=== PATIENT | female | born 1960 | race Two or more races ===

== ENCOUNTER 2016-11-24 15:14 | Emergency (ER) | payer MEDICAID ==
[2016-11-24] MEDS ORDERED: Albuterol/Ipratropium 3.0-0.5 MG/3 ML Neb Soln NEB ONE ×2 (16:00→17:37)
[2016-11-24] MEDS ORDERED: Aspirin 81 MG Tab.Chew PO ONE (16:00)
[2016-11-24] MEDS ORDERED: Sodium Chloride 0.9% 10 ML Syringe FLUSH PRN (16:00)
--- NOTE | 2016-11-24 16:40 | CR ---
Chest: Portable view of the chest was obtained. Comparison: Previous chest x-ray 08/25/16. Heart size is normal. Mild tortuosity of the thoracic aorta is seen. Lungs are clear. Bony structures are grossly intact. Impression: 1. Nothing acute is identified on portable chest x-ray. Diagnostic code #2
[2016-11-24] MEDS ORDERED: methylPREDNISolone Sodium Succinate 125 MG/2 ML SDV IVPUSH ONE (17:37)
--- NOTE | 2016-11-24 18:02 | EDM.PDOC ---
ED HPI GENERAL MEDICAL PROBLEM - General Chief Complaint: Chest Pain Stated Complaint: HIGH BP SENT FROM [facility] Time Seen by Provider: 11/24/16 15:53 Source of Information: Reports: Patient History Limitations: Reports: No Limitations - History of Present Illness INITIAL COMMENTS - FREE TEXT/NARRATIVE: The patient presents with chest pain. She was at cardiac rehab today. She has a history of an ND with stents. She had chest pain there and she was given a nitro and it was better. She had more pain and she went to [place] and they sent her over here for evaluation. She has a mild cough but no fever or chills. She says the pain is a heaviness. She denies being short of breath. She has no edema or pain in her legs. She has no abdominal pain, nausea or vomiting. Onset: Gradual Duration: Hour(s): (Today) Location: Reports: Chest Quality: Reports: Other (Heaviness) Severity: Moderate Improves with: Reports: None Worsens with: Reports: None Associated Symptoms: Reports: Chest Pain, Nausea/Vomiting. Denies: cough w sputum, Fever/Chills, Shortness of Breath Left Chest Pain Score (Numeric/FACES): 7 - Related Data Allergies Allergy/AdvReac Type Severity Reaction Status Date / Time No Known Allergies Allergy Verified 11/24/16 15:34 Home Meds: Home Meds Aspirin 81 mg PO DAILY 08/20/16 [History] Citalopram [Celexa] 40 mg PO DAILY 08/20/16 [History] Insulin Aspart [Novolog Flexpen] 18 unit SQ TID 08/20/16 [History] Insulin Glarg,Human.Rec.Analog [Lantus] 50 unit SQ BEDTIME 08/20/16 [History] Isosorbide Mononitrate [Imdur] 30 mg PO BID 08/20/16 [History] Lisinopril 40 mg PO DAILY 08/20/16 [History] Metoprolol Tartrate 75 mg PO BID 08/20/16 [History] Nitroglycerin [Nitrostat] 0.4 mg SL Q5M PRN 08/20/16 [History] Pregabalin [Lyrica] 50 mg PO TID 08/20/16 [History] Ranitidine [Zantac] 150 mg PO BEDTIME 08/20/16 [History] amLODIPine [Norvasc] 5 mg PO DAILY 08/20/16 [History] atorvaSTATin [Lipitor] 40 mg PO DAILY 08/20/16 [History] metFORMIN HCl [Metformin HCl] 1,000 mg PO BID 08/20/16 [History] tiZANidine [Zanaflex] 4 mg PO Q8H PRN 08/20/16 [History] Albuterol [Proventil HFA] 6.7 gm INH DAILY PRN 08/25/16 [History] Docusate Sodium [Colace] 100 mg PO DAILY 08/25/16 [History] Prasugrel HCl [Effient] 10 mg PO DAILY 08/25/16 [History] Insulin Aspart [NovoLOG] 4 - 15 unit SUBCUT ACBED 09/15/16 [History] Prednisone [IJD: predniSONE] 40 mg PO WITHBREAKFAST #10 tab 11/24/16 [Rx] Past Medical History HEENT History: Reports: Glaucoma Cardiovascular History: Reports: High Cholesterol, Hypertension, ND, Stents Other Cardiovascular History: stents place on 08/21/16 Respiratory History: Reports: Asthma, COPD Gastrointestinal History: Reports: Chronic Constipation YOUTUBER History: Reports: Other OB/BYN History: tubal ligation Musculoskeletal History: Reports: Back Pain, Chronic, Other (See Below) Other Musculoskeletal History: back surgery in 2014 Neurological History: Reports: Neuropathy, Diabetic Psychiatric History: Reports: Addiction, Depression Endocrine/Metabolic History: Reports: Diabetes, Type II Hematologic History: Reports: Anemia - Infectious Disease History Infectious Disease History: Reports: C-Difficile - Past Surgical History HEENT Surgical History: Reports: None Cardiovascular Surgical History: Reports: Carotid Stents GI Surgical History: Reports: Appendectomy Neurological Surgical History: Reports: Spinal Fusion Social & Family History - Family History HEENT: Reports: Glaucoma Cardiac: Reports: Afib, Bypass, CAD Respiratory: Reports: Asthma, COPD GI: Reports: Bowel Obstruction : Reports: Dialysis, Renal Calculus Musculoskeletal: Reports: Arthritis Neurological: Reports: CVA, Neuropathy, Diabetic Psychiatric: Reports: Anxiety, Depression, Panic Attack Endocrine/Metabolic: Reports: Diabetes, type II, Hyperthyroidism, Obesity/MBI 30 + Hematologic: Reports: Anemia Oncologic: Reports: Uterine - Tobacco Use Smoking Status *Q: Current Every Day Smoker Years of Tobacco use: 13 Packs/Tins Daily: 1.5 Used Tobacco, but Quit: No Second Hand Smoke Exposure: No - Caffeine Use Caffeine Use: Reports: Coffee - Recreational Drug Use Recreational Drug Use: No - Living Situation & Occupation Living situation: Reports: with Family Occupation: Unemployed ED ROS GENERAL - Review of Systems Review Of Systems: See Below Constitutional: Reports: No Symptoms HEENT: Reports: No Symptoms Respiratory: Reports: No Symptoms Cardiovascular: Reports: Chest Pain Endocrine: Reports: No Symptoms GI/Abdominal: Reports: No Symptoms : Reports: No Symptoms Musculoskeletal: Reports: No Symptoms Skin: Reports: No Symptoms Neurological: Reports: No Symptoms ED EXAM, GENERAL - Physical Exam Exam: See Below Exam Limited By: No Limitations General Appearance: Alert, No Apparent Distress Ears: Normal External Exam Nose: Normal Inspection Head: Atraumatic, Normocephalic Neck: Normal Inspection Respiratory/Chest: No Respiratory Distress, Wheezing (Moderate) Cardiovascular: Regular Rate, Rhythm, No Edema, No Murmur GI/Abdominal: Soft, Non-Tender, No Organomegaly, No Mass Back Exam: Normal Inspection Extremities: Normal Inspection Neurological: Alert, Oriented, No Motor/Sensory Deficits EKG INTERPRETATION EKG Date: 11/24/16 Time: 15:59 Rhythm: NSR Rate (beats/min): 82 Dewitt: normal P-wave: present QRS: normal ST-T: normal QT: normal Course - Vital Signs Last Recorded V/S: Last Vital Signs Temp 98 F 11/24/16 15:30 Pulse 88 11/24/16 15:30 Resp 20 11/24/16 15:30 BP 161/90 H 11/24/16 15:30 Pulse Ox 97 11/24/16 17:37 - Orders/Labs/Meds Orders: Active Orders 24 hr Category Date Time Status Cardiac Monitoring [RC] . DIRECTED Care 11/24/16 16:00 Active EKG Documentation Completion [RC] STAT Care 11/24/16 16:00 Active Oxygen Therapy [RC] PRN Care 11/24/16 16:00 Active Peripheral IV Care [RC] . DIRECTED Care 11/24/16 16:00 Active RT Aerosol Therapy [RC] ASDIRECTED Care 11/24/16 16:00 Active RT Aerosol Therapy [RC] ASDIRECTED Care 11/24/16 17:37 Active Sodium Chloride 0.9% [Saline Flush] Med 11/24/16 16:00 Active 10 ml FLUSH ASDIRECTED PRN Peripheral IV Insertion Adult [OM.PC] Stat Oth 11/24/16 16:00 Ordered Medication Orders Sodium Chloride (Saline Flush) 10 ml FLUSH ASDIRECTED PRN PRN Reason: Keep Vein Open Last Admin: 11/24/16 16:00 Dose: 10 ml Labs: Laboratory Tests 11/24/16 11/24/16 11/24/16 Range/Units 16:00 16:00 18:00 WBC 6.75 (3.98-10.04) K/mm3 RBC 4.46 (3.98-5.22) M/mm3 Hgb 13.5 (11.2-15.7) gm/L Hct 40.5 (34.1-44.9) % MCV 90.8 (79.4-94.8) fl MCH 30.3 (25.6-32.2) pg MCHC 33.3 (32.2-35.5) g/dl RDW Std Deviation 42.9 (36.4-46.3) fL Plt Count 130 L (182-369) K/mm3 MPV 13.2 H (9.4-12.3) fl Neut % (Auto) 65.0 (34.0-71.1) % Lymph % (Auto) 22.8 (19.3-51.7) % [place] % (Auto) 7.9 (4.7-12.5) % Eos % (Auto) 3.6 (0.7-5.8) Baso % (Auto) 0.6 (0.1-1.2) % Neut # (Auto) 4.39 (1.56-6.13) K/mm3 Lymph # (Auto) 1.54 (1.18-3.74) K/mm3 [place] # (Auto) 0.53 H (0.24-0.36) K/mm3 Eos # (Auto) 0.24 (0.04-0.36) K/mm3 Baso # (Auto) 0.04 (0.01-0.08) K/mm3 Sodium 140 (136-145) mEq/L Potassium 3.7 (3.5-5.1) mEq/L Chloride 104 (98-107) mEq/L Carbon Dioxide 23 (21-32) mEq/L Anion Gap 16.7 H (5-15) BUN 14 (7-18) mg/dL Creatinine 1.1 H (0.55-1.02) mg/dL Est Cr Clr Drug Dosing 47.24 mL/min Estimated GFR (MDRD) 51 (>60) mL/min BUN/Creatinine Ratio 12.7 L (14-18) Glucose 160 H (74-106) mg/dL Calcium 9.1 (8.5-10.1) mg/dL Total Bilirubin 0.3 (0.2-1.0) mg/dL AST 94 H (15-37) U/L ALT 113 H (14-59) U/L Alkaline Phosphatase 137 H (46-116) U/L Troponin I < 0.017 < 0.017 (0.00-0.056) ng/mL Total Protein 6.9 (6.4-8.2) g/dl Albumin 3.6 (3.4-5.0) g/dl Globulin 3.3 gm/dL Albumin/Globulin Ratio 1.1 (1-2) Meds: Medications Generic Name Dose Route Start Last Admin Trade Name Freq PRN Reason Stop Dose Admin Sodium Chloride 10 ml 11/24/16 16:00 11/24/16 16:00 Saline Flush FLUSH 10 ml ASDIRECTED PRN Administration Keep Vein Open Discontinued Medications Generic Name Dose Route Start Last Admin Trade Name Freq PRN Reason Stop Dose Admin Albuterol/Ipratropium 3 ml 11/24/16 16:00 11/24/16 16:07 Duoneb 3.0-0.5 Mg/3 Ml NEB 11/24/16 16:01 3 ml ONETIME ONE Administration Albuterol/Ipratropium 3 ml 11/24/16 17:37 11/24/16 17:44 Duoneb 3.0-0.5 Mg/3 Ml NEB 11/24/16 17:38 3 ml ONETIME ONE Administration Aspirin 324 mg 11/24/16 16:00 11/24/16 16:37 Aspirin PO 11/24/16 16:01 324 mg ONETIME ONE Administration Methylprednisolone Sodium Succinate 125 mg 11/24/16 17:37 11/24/16 17:57 Solu-Medrol IVPUSH 11/24/16 17:38 125 mg ONETIME ONE Administration - Re-Assessments/Exams Free Text/Narrative Re-Assessment/Exam: 11/24/16 18:10 I ordered an IV saline lock, aspirin, EKG, CXR, duoneb. Her EKG shows a NSR with no acute changes. Her CXR looks good. Her CBC and CMP look good. Her troponin is negative. She still has some wheezing. I ordered a duoneb and solu -medrol 125mg IV. I will do a repeat troponin. 11/24/16 18:39 Her repeat troponin was negative. She feels better. It appears to be an asthma exacerbation. I will discharge her on some prednisone 40mg daily for 5 days. Departure - Departure Time of Disposition: 18:40 Disposition: Home, Self-Care 01 Condition: good Clinical Impression: Asthma exacerbation Chest pain Qualifiers: Chest pain type: unspecified Qualified Code(s): R07.9 - Chest pain, unspecified Prescriptions: Prednisone [IJD: predniSONE] 40 mg PO WITHBREAKFAST #10 tab Forms: ED Department Discharge Additional Instructions: Take your medication as prescribed. Take prednisone 2 pills daily for 5 days. Please return if you are worse such as more chest pain or shortness of breath. - My Orders Last 24 Hours: My Active Orders 11/24/16 16:00 Cardiac Monitoring [RC] . DIRECTED EKG Documentation Completion [RC] STAT Oxygen Therapy [RC] PRN Peripheral IV Care [RC] . DIRECTED RT Aerosol Therapy [RC] ASDIRECTED Sodium Chloride 0.9% [Saline Flush] 10 ml FLUSH ASDIRECTED PRN Peripheral IV Insertion Adult [OM.PC] Stat 11/24/16 17:37 RT Aerosol Therapy [RC] ASDIRECTED - Assessment/Plan Last 24 Hours: My Active Orders 11/24/16 16:00 Cardiac Monitoring [RC] . DIRECTED EKG Documentation Completion [RC] STAT Oxygen Therapy [RC] PRN Peripheral IV Care [RC] . DIRECTED RT Aerosol Therapy [RC] ASDIRECTED Sodium Chloride 0.9% [Saline Flush] 10 ml FLUSH ASDIRECTED PRN Peripheral IV Insertion Adult [OM.PC] Stat 11/24/16 17:37 RT Aerosol Therapy [RC] ASDIRECTED
[2016-11-24 19:20] VITALS: BP 158/82
== END 2016-11-24 19:15 | disposition home or self-care (01) ==
LOC: JD.ED 15:14
DX: J45.901 Unspecified asthma with (acute) exacerbation (principal); R07.9 Chest pain, unspecified; E78.00 Pure hypercholesterolemia, unspecified; I10 Essential (primary) hypertension; J44.9 Chronic obstructive pulmonary disease, unspecified; E11.9 Type 2 diabetes mellitus without complications; F17.210 Nicotine dependence, cigarettes, uncomplicated; Z79.82 Long term (current) use of aspirin; Z79.4 Long term (current) use of insulin; Z79.899 Other long term (current) drug therapy
CPT/HCPCS: 36415; 71010; 80053; 84484; 85025; 93005; 94640; 94664; 96374; 99285; A9270; J2930; J7050; 99284

== ENCOUNTER 2017-04-09 08:59 | Emergency (ER) | payer MEDICAID ==
[2017-04-09 09:16] VITALS: BP 159/96
--- NOTE | 2017-04-09 09:51 | EDM.PDOC ---
ED HPI GENERAL MEDICAL PROBLEM - General Chief Complaint: Back Pain or Injury Stated Complaint: BACK AND LT LEG PAIN Time Seen by Provider: 04/09/17 09:24 Source of Information: Reports: Patient History Limitations: Reports: No Limitations - History of Present Illness INITIAL COMMENTS - FREE TEXT/NARRATIVE: The patient presents with low back pain. This has been going on for about 2 years but it has gotten worse. The patient had back surgery 2 years ago and she fell 4 days after that and hurt her back again. Since then she has had back pain to the left side, left leg numbness and weakness, and bowel and bladder problems. All of these symptoms have gotten worse. Her provider Dr Dinero had her going to PT and now they have gotten worse. Her provider recommended she come to the ER for an MRI. The patient says she has numbness in the groin and has decreased sensation with intercourse. This is not a new problem. She denies fever, chills, cough, chest pain, or shortness of breath. She also said she has numbness to the left arm. This is a chronic problem and she has known carpal tunnel syndrome. She has neck pain. She fell a few weeks ago and hurt her neck. She got dizzy and fell at that time. Onset: Gradual Duration: Week(s): (For 2 years) Location: Reports: Back Quality: Reports: Sharp Severity: Severe Improves with: Reports: None Worsens with: Reports: Movement Context: Reports: Activity Associated Symptoms: Reports: No Other Symptoms Treatments [employer] WORKER: Reports: Acetaminophen Left Lower Back Pain Score (Numeric/FACES): 6 - Related Data Allergies Allergy/AdvReac Type Severity Reaction Status Date / Time No Known Allergies Allergy Verified 04/09/17 09:16 Home Meds: Home Meds Aspirin 81 mg PO DAILY 08/20/16 [History] Citalopram [Celexa] 40 mg PO DAILY 08/20/16 [History] Insulin Aspart [Novolog Flexpen] 18 unit SQ TID 08/20/16 [History] Insulin Glarg,Human.Rec.Analog [Lantus] 50 unit SQ BEDTIME 08/20/16 [History] Isosorbide Mononitrate [Imdur] 30 mg PO BID 08/20/16 [History] Lisinopril 40 mg PO DAILY 08/20/16 [History] Metoprolol Tartrate 75 mg PO BID 08/20/16 [History] Nitroglycerin [Nitrostat] 0.4 mg SL Q5M PRN 08/20/16 [History] Pregabalin [Lyrica] 50 mg PO TID 08/20/16 [History] Ranitidine [Zantac] 150 mg PO BEDTIME 08/20/16 [History] amLODIPine [Norvasc] 5 mg PO DAILY 08/20/16 [History] atorvaSTATin [Lipitor] 40 mg PO DAILY 08/20/16 [History] metFORMIN HCl [Metformin HCl] 1,000 mg PO BID 08/20/16 [History] tiZANidine [Zanaflex] 4 mg PO Q8H PRN 08/20/16 [History] Albuterol [Proventil HFA] 6.7 gm INH DAILY PRN 08/25/16 [History] Docusate Sodium [Colace] 100 mg PO DAILY 08/25/16 [History] Prasugrel HCl [Effient] 10 mg PO DAILY 08/25/16 [History] Insulin Aspart [NovoLOG] 4 - 15 unit SUBCUT ACBED 09/15/16 [History] Prednisone [IJD: predniSONE] 40 mg PO WITHBREAKFAST #10 tab 11/24/16 [Rx] Hydrocodone/Acetaminophen [Hydrocodon-Acetaminophen 5-325] 1 - 2 each PO Q6HR PRN #20 tablet 04/09/17 [Rx] Past Medical History HEENT History: Reports: Glaucoma Cardiovascular History: Reports: High Cholesterol, Hypertension, [place], Stents Other Cardiovascular History: stents place on 08/21/16 Respiratory History: Reports: Asthma, COPD Gastrointestinal History: Reports: Chronic Constipation, Fecal Incontinence Genitourinary History: Reports: Urinary Incontinence [employer] 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: Reports: Other OB/BYN History: tubal ligation Musculoskeletal History: Reports: Back Pain, Chronic, Other (See Below) Other Musculoskeletal History: back surgery in 2014 Neurological History: Reports: Neuropathy, Diabetic Psychiatric History: Reports: Addiction, Depression Endocrine/Metabolic History: Reports: Diabetes, Type II Hematologic History: Reports: Anemia, Blood Transfusion(s) - Infectious Disease History Infectious Disease History: Reports: C-Difficile - Past Surgical History HEENT Surgical History: Reports: None Cardiovascular Surgical History: Reports: Carotid Stents GI Surgical History: Reports: Appendectomy Neurological Surgical History: Reports: Spinal Fusion Social & Family History - Family History Family Medical History: Noncontributory HEENT: Reports: Glaucoma Cardiac: Reports: Afib, Bypass, CAD Respiratory: Reports: Asthma, COPD GI: Reports: Bowel Obstruction : Reports: Dialysis, Renal Calculus Musculoskeletal: Reports: Arthritis Neurological: Reports: CVA, Neuropathy, Diabetic Psychiatric: Reports: Anxiety, Depression, Panic Attack Endocrine/Metabolic: Reports: Diabetes, type II, Hyperthyroidism, Obesity/MBI 30 + Hematologic: Reports: Anemia Oncologic: Reports: Uterine - Tobacco Use Smoking Status *Q: Current Every Day Smoker Years of Tobacco use: 30 Packs/Tins Daily: 1 Used Tobacco, but Quit: No Second Hand Smoke Exposure: No - Caffeine Use Caffeine Use: Reports: None - Recreational Drug Use Recreational Drug Use: No - Living Situation & Occupation Living situation: Reports: with Family Occupation: Unemployed ED ROS GENERAL - Review of Systems Review Of Systems: See Below Constitutional: Reports: No Symptoms HEENT: Reports: No Symptoms Respiratory: Reports: No Symptoms Cardiovascular: Reports: No Symptoms Endocrine: Reports: No Symptoms GI/Abdominal: Reports: No Symptoms : Reports: No Symptoms Musculoskeletal: Reports: Neck Pain, Back Pain (Lower) Neurological: Reports: Numbness (Left arm and leg), Weakness (Left leg). Denies : Headache ED EXAM,LOWER BACK PAIN/INJURY - Physical Exam Exam: See Below Exam Limited By: No Limitations General Appearance: Alert, No Apparent Distress Ears: Normal External Exam Nose: Normal Inspection Head: Atraumatic, Normocephalic Neck: Other (Pain upon palpation to the left lateral neck but not the midline.) Respiratory/Chest: No Respiratory Distress, Lungs Clear, Normal Breath Sounds Cardiovascular: Regular Rate, Rhythm, No Edema, No Murmur GI/Abdominal: Soft, Non-Tender, No Organomegaly, No Mass Back Exam: Other (Pain upon palpation to the left lower back) Extremities: Normal Range of Motion, Non-Tender Neurological: Alert, Oriented x 3, Other (Mild weakness to the left arm and left leg. Decreased sensation to the left leg and left arm.) Course - Vital Signs Last Recorded V/S: Last Vital Signs Temp 97.6 F 04/09/17 09:09 Pulse 71 04/09/17 09:09 Resp 16 04/09/17 09:09 BP 159/96 H 04/09/17 09:09 Pulse Ox 98 04/09/17 09:09 - Re-Assessments/Exams Free Text/Narrative Re-Assessment/Exam: 04/09/17 09:56 The numbness, pain and weakness of the left arm and leg are chronic problems that are getting worse. I do not feel there is an acute CVA. She does need an MRI of her lumbar spine and cervical spine. I checked with our radiology department and they could not get her in this week. They do have an opening Thursday at 1:30. I have scheduled her for that. My recording clerk did attempt to get her a neurology appointment but they would not book her until she had the MRI. Departure - Departure Time of Disposition: 10:00 Disposition: Home, Self-Care 01 Condition: Good Clinical Impression: Neck pain, Left arm numbness, Left leg numbness Low back pain Qualifiers: Chronicity: chronic Back pain laterality: left Sciatica presence: with sciatica Sciatica laterality: sciatica of left side Qualified Code(s): M54.42 - Lumbago with sciatica, left side; G89.29 - Other chronic pain - Discharge Information Prescriptions: Hydrocodone/Acetaminophen [Hydrocodon-Acetaminophen 5-325] 1 - 2 each PO Q6HR PRN #20 tablet PRN Reason: Pain Referrals: Izzy Mays DO [Primary Care Provider] - 1 Week (After the MRI) Forms: ED Department Discharge Additional Instructions: Take the hydrocodone as needed for pain. I have scheduled an MRI of your neck and low back for ThursdayApril 15 at 1:30am. Please come 1/2 hour early to register. Please return if the pain gets worse, if the weakness gets worse or if you cannot urinate. Follow up with Dr Mays a day or 2 after the MRI for results.
== END 2017-04-09 11:00 | disposition home or self-care (01) ==
LOC: JD.ED 08:59
DX: M54.42 Lumbago with sciatica, left side (principal); M54.2 Cervicalgia; R20.0 Anesthesia of skin; E11.9 Type 2 diabetes mellitus without complications; F32.9 Major depressive disorder, single episode, unspecified; F17.210 Nicotine dependence, cigarettes, uncomplicated; Z79.82 Long term (current) use of aspirin; Z79.4 Long term (current) use of insulin; Z79.899 Other long term (current) drug therapy; Z79.84 Long term (current) use of oral hypoglycemic drugs
CPT/HCPCS: 99284

== ENCOUNTER 2017-05-21 14:27 | Emergency (ER) | payer MEDICAID, OTHER ==
[2017-05-21] MEDS ORDERED: HYDROmorphone 1 MG/ML Syringe IVPUSH ONE (15:04)
[2017-05-21] MEDS: Sodium Chloride 0.9% 10 ML Syringe FLUSH PRN ×2 (15:14→16:32)
--- NOTE | 2017-05-21 15:31 | EDM.PDOC ---
ED HPI GENERAL MEDICAL PROBLEM - General Chief Complaint: Neck Problem Stated Complaint: NECK AND R SHOULDER PAIN Time Seen by Provider: 05/21/17 14:38 Source of Information: Reports: Patient History Limitations: Reports: No Limitations - History of Present Illness INITIAL COMMENTS - FREE TEXT/NARRATIVE: The patient present with right sided neck pain that radiates down her right arm. She started having some pain last night and this morning it was much worse. She said this summer she fell out of a chair at the [employer] and since then she has had pain in her neck and back. The pain has never been this bad. She denies numbness or weakness. She does have a headache with it but it started in the neck. She denies fever, chills, cough, chest pain or shortness of breath. She has no abdominal pain, nausea or vomiting. Onset: Gradual Duration: Day(s): (Last night) Location: Reports: Neck, Upper Extremity, Right Quality: Reports: Sharp Severity: Severe Improves with: Reports: Immobilization Worsens with: Reports: Movement Context: Reports: Other (She did fall this summer and she has had some trouble since then) Associated Symptoms: Reports: No Other Symptoms Right Neck Pain Score (Numeric/FACES): 8 - Related Data Allergies Allergy/AdvReac Type Severity Reaction Status Date / Time No Known Allergies Allergy Verified 05/21/17 14:38 Home Meds: Home Meds Aspirin 81 mg PO DAILY 08/20/16 [History] Citalopram [Celexa] 40 mg PO DAILY 08/20/16 [History] Insulin Glarg,Human.Rec.Analog [Lantus] 50 unit SQ BEDTIME 08/20/16 [History] Isosorbide Mononitrate [Imdur] 30 mg PO BID 08/20/16 [History] Lisinopril 40 mg PO DAILY 08/20/16 [History] Metoprolol Tartrate 100 mg PO BID 08/20/16 [History] Nitroglycerin [Nitrostat] 0.4 mg SL Q5M PRN 08/20/16 [History] Pregabalin [Lyrica] 50 mg PO TID 08/20/16 [History] amLODIPine [Norvasc] 5 mg PO DAILY 08/20/16 [History] atorvaSTATin [Lipitor] 10 mg PO DAILY 08/20/16 [History] metFORMIN HCl [Metformin HCl] 1,000 mg PO BID 08/20/16 [History] tiZANidine [Zanaflex] 4 mg PO Q8H PRN 08/20/16 [History] Prasugrel HCl [Effient] 10 mg PO DAILY 08/25/16 [History] Hydrocodone/Acetaminophen [Hydrocodon-Acetaminophn 10-325] 2 tab PO Q6H PRN [History] Pantoprazole [ProTONIX] 1 tab PO DAILY 04/09/17 [History] Diazepam [Valium] 5 mg PO TID PRN #20 tablet 05/21/17 [Rx] Docusate Sodium [Colace] 100 mg PO DAILY PRN 05/21/17 [History] Insulin Aspart [NovoLOG] 25 unit SUBCUT BIDAC 05/21/17 [History] Insulin Aspart [NovoLOG] 27 unit SUBCUT DAILY 05/21/17 [History] Loratadine [Claritin] 10 mg PO DAILY 05/21/17 [History] oxyCODONE HCl/Acetaminophen [Percocet 5-325 mg Tablet] 1 - 2 each PO Q6HR PRN # 20 tablet 05/21/17 [Rx] traMADol HCl [Tramadol HCl] 50 mg PO TID PRN 05/21/17 [History] Past Medical History HEENT History: Reports: Glaucoma Cardiovascular History: Reports: High Cholesterol, Hypertension, CT, Stents Other Cardiovascular History: stents place on 08/21/16 Respiratory History: Reports: Asthma, COPD Gastrointestinal History: Reports: Chronic Constipation, Fecal Incontinence Genitourinary History: Reports: Urinary Incontinence [employer] History: Reports: Other OB/BYN History: tubal ligation Musculoskeletal History: Reports: Back Pain, Chronic, Other (See Below) Other Musculoskeletal History: back surgery in 2014 Neurological History: Reports: Neuropathy, Diabetic Psychiatric History: Reports: Addiction, Depression Endocrine/Metabolic History: Reports: Diabetes, Type II Hematologic History: Reports: Anemia, Blood Transfusion(s) - Infectious Disease History Infectious Disease History: Reports: C-Difficile - Past Surgical History HEENT Surgical History: Reports: None Cardiovascular Surgical History: Reports: Carotid Stents GI Surgical History: Reports: Appendectomy Neurological Surgical History: Reports: Spinal Fusion Social & Family History - Family History Family Medical History: Noncontributory HEENT: Reports: Glaucoma Cardiac: Reports: Afib, Bypass, CAD Respiratory: Reports: Asthma, COPD GI: Reports: Bowel Obstruction : Reports: Dialysis, Renal Calculus Musculoskeletal: Reports: Arthritis Neurological: Reports: CVA, Neuropathy, Diabetic Psychiatric: Reports: Anxiety, Depression, Panic Attack Endocrine/Metabolic: Reports: Diabetes, type II, Hyperthyroidism, Obesity/MBI 30 + Hematologic: Reports: Anemia Oncologic: Reports: Uterine - Tobacco Use Smoking Status *Q: Current Every Day Smoker Years of Tobacco use: 35 Packs/Tins Daily: 1.5 Used Tobacco, but Quit: No Second Hand Smoke Exposure: No - Caffeine Use Caffeine Use: Reports: None - Recreational Drug Use Recreational Drug Use: No - Living Situation & Occupation Living situation: Reports: with Family Occupation: Unemployed ED ROS GENERAL - Review of Systems Review Of Systems: See Below Constitutional: Reports: No Symptoms HEENT: Reports: No Symptoms Respiratory: Reports: No Symptoms Cardiovascular: Reports: No Symptoms Endocrine: Reports: No Symptoms GI/Abdominal: Reports: No Symptoms : Reports: No Symptoms Musculoskeletal: Reports: Neck Pain, Shoulder Pain (and right arm pain) ED EXAM, UPPER BACK/NECK PAIN - Physical Exam Exam: See Below Exam Limited By: No Limitations General Appearance: Alert, No Apparent Distress Ears Exam: Normal External Exam Nose Exam: Normal Inspection Head Exam: Atraumatic, Normocephalic Neck Exam: Tenderness (Moderate tenderness to the right neck. The patient is holding her right arm next to her body and flexed at the elbow.) Cardiovascular/Respiratory: Regular Rate, Rhythm, No M/R/G, Normal Peripheral Pulses, Normal Breath Sounds, No Respiratory Distress GI/Abdominal: Soft, Non-Tender, No Organomegaly, No Mass Extremities: Other (Pain upon palpation to the upper right arm. Good sensation and pulses distally. Patient can move her fingers and bend at the wrist and elbow.) Course - Vital Signs Last Recorded V/S: Last Vital Signs Temp 98.7 F 05/21/17 14:38 Pulse 77 05/21/17 14:38 Resp 18 05/21/17 14:38 BP 162/97 H 05/21/17 14:38 Pulse Ox 97 05/21/17 14:38 - Orders/Labs/Meds Orders: Active Orders 24 hr Category Date Time Status Peripheral IV Care [RC] . DIRECTED Care 05/21/17 15:03 Active Sodium Chloride 0.9% [Saline Flush] Med 05/21/17 15:03 Active 10 ml FLUSH ASDIRECTED PRN Peripheral IV Insertion Adult [OM.PC] Routine Oth 05/21/17 15:03 Ordered Medication Orders Sodium Chloride (Saline Flush) 10 ml FLUSH ASDIRECTED PRN PRN Reason: Keep Vein Open Last Admin: 05/21/17 15:14 Dose: 10 ml Meds: Medications Generic Name Dose Route Start Last Admin Trade Name Freq PRN Reason Stop Dose Admin Sodium Chloride 10 ml 05/21/17 15:03 05/21/17 15:14 Saline Flush FLUSH 10 ml ASDIRECTED PRN Administration Keep Vein Open Discontinued Medications Generic Name Dose Route Start Last Admin Trade Name Freq PRN Reason Stop Dose Admin Diazepam 5 mg 05/21/17 15:03 05/21/17 15:13 Valium IVPUSH 05/21/17 15:04 5 mg ONETIME ONE Administration Hydromorphone HCl 1 mg 05/21/17 15:04 05/21/17 15:14 Dilaudid IVPUSH 05/21/17 15:05 1 mg ONETIME ONE Administration - Re-Assessments/Exams Free Text/Narrative Re-Assessment/Exam: 05/21/17 15:33 I ordered an IV saline lock, CT of her cervical spine, dilaudid 1mg IV, and valium 5mg IV. 05/21/17 16:[address] shows degenerative changes. Findings are fairly similar to prior MRI. Nothing acute is appreciated. 05/21/17 16:17 She feels better. I will discharge her home with valium and percocet. Departure - Departure Time of Disposition: 16:20 Disposition: Home, Self-Care 01 Condition: Good Clinical Impression: Radiculopathy, cervical - Discharge Information Prescriptions: oxyCODONE HCl/Acetaminophen [Percocet 5-325 mg Tablet] 1 - 2 each PO Q6HR PRN # 20 tablet PRN Reason: Pain Diazepam [Valium] 5 mg PO TID PRN #20 tablet PRN Reason: Pain Referrals: PCP,Unknown [Primary Care Provider] - Forms: ED Department Discharge Additional Instructions: Take the medication as prescribed. Use ice or heat which ever one feels better. Follow up with your doctor in 1 week. Please return if you are worse. - My Orders Last 24 Hours: My Active Orders 05/21/17 15:03 Peripheral IV Care [RC] . DIRECTED Sodium Chloride 0.9% [Saline Flush] 10 ml FLUSH ASDIRECTED PRN Peripheral IV Insertion Adult [OM.PC] Routine - Assessment/Plan Last 24 Hours: My Active Orders 05/21/17 15:03 Peripheral IV Care [RC] . DIRECTED Sodium Chloride 0.9% [Saline Flush] 10 ml FLUSH ASDIRECTED PRN Peripheral IV Insertion Adult [OM.PC] Routine
--- NOTE | 2017-05-21 15:58 | CT ---
CT cervical spine Technique: Multiple axial sections were obtained from above C1 inferiorly to the bottom of T2. Reconstructed sagittal and coronal images were reviewed. Comparison: Previous MRI cervical spine exam of 04/23/17. Findings: C1-C2: Degenerative change is noted between the dens and anterior arch of C1. Well-corticated bony density is seen inferior to the C1 anterior arch which is felt to be incidental. C2-C3: Posterior disc is preserved. No central canal stenosis or neural foraminal stenosis is seen. Left-sided degenerative apophyseal change is seen. C3-C4: Disc herniation to the midline is seen showing slight calcification. This is seen on prior MRI. This causes slight central canal stenosis. Neural foramina show no bony neural foraminal stenosis. C4-C5: Posterior disc appears to be preserved. No bony neural foraminal stenosis or central canal stenosis is seen. Degenerative apophyseal change is noted on the left side. C5-C6: Mild diffuse posterior disc bulge is seen. No central canal stenosis or neural foraminal stenosis is seen. Mild degenerative apophyseal change is noted on the right side. C6-C7: Disc space narrowing is noted with prominent anterior osteophytes. Left neural foramina shows no bony central canal stenosis. Mild right-sided neural foraminal stenosis is seen. No central canal stenosis is seen. C7-T1: Posterior disc is preserved. No central canal stenosis or neural foraminal stenosis is seen. T1-T2: Posterior disc is preserved. No central canal stenosis or neural foraminal stenosis is seen. Mild kyphosis is seen which is likely positional. No abnormal subluxation is seen. No fracture is appreciated. Impression: 1. Degenerative change as noted above. Findings are fairly similar to prior MRI. 2. Nothing acute is appreciated. Diagnostic code #3
[2017-05-21] MEDS ORDERED: HYDROmorphone 0.5 MG/0.5 ML Syringe IVPUSH ONE (16:23)
[2017-05-21 16:36] VITALS: BP 144/89
== END 2017-05-21 16:49 | disposition home or self-care (01) ==
LOC: JD.ED 14:27
DX: M54.12 Radiculopathy, cervical region (principal); I10 Essential (primary) hypertension; E78.00 Pure hypercholesterolemia, unspecified; J44.9 Chronic obstructive pulmonary disease, unspecified; E11.9 Type 2 diabetes mellitus without complications; F32.9 Major depressive disorder, single episode, unspecified; Z86.2 Personal history of diseases of the blood and blood-forming organs and certain disorders involving the immune mechanism; F17.210 Nicotine dependence, cigarettes, uncomplicated; Z79.82 Long term (current) use of aspirin; Z79.4 Long term (current) use of insulin; Z79.899 Other long term (current) drug therapy
CPT/HCPCS: 72125; 96374; 96375; 99284; J1170; J3360; J7050

== ENCOUNTER → 2017-12-10 | Day surgery (SDC) | payer OTHER ==
[~2017-12-10] MED LIST: Bupivacaine 0.25% 30 ML SDV ONE; Ketamine 500 mg/10 ML MDV ONE; Lactated Ringers 1,000 ML IV SCH; Lidocaine 1% 30 ML SDV ONE; Lidocaine 1% 4 ML ONE; Lidocaine 1%/Sod Bicarbonate in NS 8.4% 1 ML Syringe IDERM PRN; Midazolam 1 MG/ML 2 ML SDV ONE; Propofol 200 MG/20 ML SDV ONE; Sodium Chloride 0.9% 1,000 ML IV SCH; Sodium Chloride 0.9% 10 ML Syringe FLUSH PRN; ceFAZolin 1 GM Vial ONE; fentaNYL 100 MCG/2 ML SDV ONE
--- NOTE | 2017-12-10 07:41 | PCM.PREANE ---
Preanesthetic Assessment - Anesthesia/Transfusion/Family Hx Anesthesia History: Prior Anesthesia Without Reaction Family History of Anesthesia Reaction: No Transfusion History: Prior Transfusion Without Reaction - Review of Systems General: No Symptoms Pulmonary: Cough (Smoker 1.5 packs per day) Cardiovascular: Other (Cardiac stents x7. No chest pain. Stress test after stents was negative " a while ago". ) Gastrointestinal: No Symptoms Neurological: Numbness, Tingling (Neuropathy in her feet.) Other: Reports: Easy Bruising (On anticoagulation for cardiac stents.), Diabetes , Depression, Anxiety - Physical Assessment NPO Status Date: 12/09/17 NPO Status Time: 20:30 O2 Sat by Pulse Oximetry: 96 Respiratory Rate: 20 Vital Signs: Last Vital Signs Temp 36.5 C 12/10/17 06:20 Pulse 67 12/10/17 06:20 Resp 20 12/10/17 06:20 BP 169/90 H 12/10/17 06:20 Pulse Ox 96 12/10/17 06:20 Height: 1.6 m Weight: 79.832 kg ASA Class: 3 Mental Status: Alert & Oriented x3 Airway Class: Mallampati = 2 Dentition: Reports: Dentures Thyro-Mental Finger Breadths: 3 Mouth Opening Finger Breadths: 3 ROM/Head Extension: Full Lungs: Clear to Auscultation, Normal Respiratory Effort, Decreased Breath Sounds Cardiovascular: Regular Rate, Regular Rhythm - Lab Values: Laboratory Last Values MRSA (PCR) Negative 11/25/17 14:50 - Imaging/EKG Impressions: SR noted. - Allergies Allergies/Adverse Reactions: Allergies Allergy/AdvReac Type Severity Reaction Status Date / Time No Known Allergies Allergy Verified 12/09/17 10:45 - Anesthesia Plan Beta Kyra: Metoprolol Med Last Dose Date: 12/10/17 Med Last Dose Time: 05:20 - Acknowledgements Anesthesia Type Planned: MAC Pt an Appropriate Candidate for the Planned Anesthesia: Yes Alternatives and Risks of Anesthesia Discussed w Pt/Guardian: Yes Pt/Guardian Understands and Agrees with Anesthesia Plan: Yes Additional Comments: Patient is aware she is at a higher risk for cardiac complications. She stopped her Effient 5 days ago. Spoke with her regarding our limited cardiac services in [place]. 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 PreAnesthesia Questionnaire HEENT History: Reports: Allergic Rhinitis, Cataract, Glaucoma, Other (See Below) Other HEENT History: Presbyopia, astigmatism Cardiovascular History: Reports: CAD, High Cholesterol, Hypertension, [place], Stents Other Cardiovascular History: stents place on 08/21/16 Respiratory History: Reports: Asthma, COPD Gastrointestinal History: Reports: Chronic Constipation, Fecal Incontinence, GERD, Other (See Below) Other Gastrointestinal History: Dysphagia, fatty liver Genitourinary History: Reports: Urinary Incontinence, Other (See Below) Other Genitourinary History: Over active bladder 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 OB/BYN History: tubal ligation Musculoskeletal History: Reports: Back Pain, Chronic, Other (See Below) Other Musculoskeletal History: Carpal tunnel syndrome, trigger finger, trigger thumb Neurological History: Reports: Neuropathy, Diabetic Other Neuro History: Lumbar radiculopathy Psychiatric History: Reports: Addiction, Anxiety, Depression Endocrine/Metabolic History: Reports: Diabetes, Type II, Obesity/BMI 30+ Hematologic History: Reports: Anemia, Blood Transfusion(s) Immunologic History: Reports: None Oncologic (Cancer) History: Reports: None Dermatologic History: Reports: None - Infectious Disease History Infectious Disease History: Reports: None - Past Surgical History Head Surgeries/Procedures: Reports: None HEENT Surgical History: Reports: None Cardiovascular Surgical History: Reports: Carotid Stents Other Cardiovascular Surgeries/Procedures: [place] x3 Respiratory Surgical History: Reports: None GI Surgical History: Reports: Appendectomy Female Surgical History: Reports: Breast Biopsy, Tubal Ligation Endocrine Surgical History: Reports: None Neurological Surgical History: Reports: Spinal Fusion Other Neurological Surgeries/Procedures: L3-L4 fusion Musculoskeletal Surgical History: Other Musculoskeletal Surgeries/Procedures:: Right carpal tunnel release, ORIF right ankle Oncologic Surgical History: Reports: None - SUBSTANCE USE Smoking Status *Q: Current Every Day Smoker Tobacco Use Within Last Twelve Months: Cigarettes Second Hand Smoke Exposure: No Recreational Drug Use History: No - HOME MEDS Home Medications: Home Meds Aspirin 81 mg PO DAILY 08/20/16 [History] Insulin Glarg,Human.Rec.Analog [Lantus] 34 unit SQ BID 08/20/16 [History] Isosorbide Mononitrate [Imdur] 30 mg PO BID 08/20/16 [History] Lisinopril 40 mg PO DAILY 08/20/16 [History] Metoprolol Tartrate 100 mg PO BID 08/20/16 [History] Nitroglycerin [Nitrostat] 0.4 mg SL Q5M PRN 08/20/16 [History] amLODIPine [Norvasc] 5 mg PO DAILY 08/20/16 [History] atorvaSTATin [Lipitor] 10 mg PO DAILY 08/20/16 [History] metFORMIN HCl [Metformin HCl] 1,000 mg PO BID 08/20/16 [History] tiZANidine [Zanaflex] 4 mg PO Q8H PRN 08/20/16 [History] Prasugrel HCl [Effient] 10 mg PO DAILY 08/25/16 [History] Hydrocodone/Acetaminophen [Hydrocodon-Acetaminophn 10-325] 1 tab PO TID [History] Pantoprazole [ProTONIX] 40 mg PO DAILY 04/09/17 [History] Docusate Sodium [Colace] 100 mg PO BID PRN 05/21/17 [History] Insulin Aspart [NovoLOG] 27 unit SUBCUT TID 05/21/17 [History] Loratadine [Claritin] 10 mg PO DAILY 05/21/17 [History] Albuterol Sulfate [Proair Respiclick] 2 puff IH Q6H PRN 12/09/17 [History] Escitalopram [Lexapro] 10 mg PO BEDTIME 12/09/17 [History] Gabapentin [Neurontin] 300 mg PO TID 12/09/17 [History] Oxybutynin 5 mg PO BID 12/09/17 [History] Polyethylene Glycol 3350 [MiraLAX] 17 gm PO DAILY 12/09/17 [History] Promethazine [Phenergan] 25 mg PO Q4H PRN 12/09/17 [History] Saliva Substitution Combo No.9 [Biotene] 15 ml MM Q4H PRN 12/09/17 [History] traMADol HCl [Ultram] 50 - 100 mg PO Q6H PRN #10 tablet 12/10/17 [Rx] - CURRENT (IN HOUSE) MEDS Current Meds: Current Medications Lactated Ringer's (Ringers, Lactated) 1,000 mls @ 125 mls/hr IV ASDIRECTED BOLA Stop: 12/10/17 18:00 Sodium Chloride (Normal Saline) 1,000 mls @ 125 mls/hr IV ASDIRECTED BOLA Last Admin: 05/31/18 06:35 Dose: 125 mls/hr Lidocaine/Sodium Bicarbonate (Buffered Lidocaine 1% In Ns 8.4%) 0.25 ml IDERM ONETIME PRN PRN Reason: Prior to IV Start Stop: 12/10/17 18:00 Last Admin: 12/10/17 06:35 Dose: 0.25 ml Sodium Chloride (Saline Flush) 10 ml FLUSH ASDIRECTED PRN PRN Reason: Keep Vein Open Stop: 12/10/17 18:00 Discontinued Medications Bupivacaine HCl (Marcaine 0.25%) Confirm Administered Dose 30 ml .ROUTE .STK- MED ONE Stop: 12/10/17 07:08 Cefazolin Sodium (Ancef) Confirm Administered Dose 2 gm .ROUTE .STK-MED ONE Stop: 12/10/17 07:03 Fentanyl (Sublimaze) Confirm Administered Dose 100 mcg .ROUTE .STK-MED ONE Stop: 12/10/17 06:59 Lidocaine HCl (Xylocaine-Mpf 1%) Confirm Administered Dose 4 mls @ as directed .ROUTE .STK-MED ONE Stop: 12/10/17 07:03 Ketamine HCl (Ketalar) Confirm Administered Dose 500 mg .ROUTE .STK-MED ONE Stop: 12/10/17 06:59 Lidocaine HCl (Xylocaine-Mpf 1%) Confirm Administered Dose 30 ml .ROUTE .STK- MED ONE Stop: 12/10/17 07:08 Midazolam HCl (Versed 1 Mg/Ml) Confirm Administered Dose 2 mg .ROUTE .STK-MED ONE Stop: 12/10/17 06:59 Propofol (Diprivan 20 Ml) Confirm Administered Dose 200 mg .ROUTE .STK-MED ONE Stop: 12/10/17 07:03
--- NOTE | 2017-12-10 08:03 | PCM48HPAN ---
Post Anesthesia Note - EVALUATION WITHIN 48HRS OF ANESTHETIC Vital Signs in Normal Range: Yes Patient Participated in Evaluation: Yes Respiratory Function Stable: Yes Airway Patent: Yes Cardiovascular Function Stable: Yes Hydration Status Stable: Yes Pain Control Satisfactory: Yes Nausea and Vomiting Control Satisfactory: Yes Mental Status Recovered: Yes Pulse Rate: 67 SaO2: 96 Resp Rate: 20 Temperature: 36.5 C Blood Pressure: 169/90
[2017-12-10 08:07] VITALS: BP 132/83
--- NOTE | 2017-12-15 06:58 | PCM.OPNOTE ---
- General Post-Op/Procedure Note Date of Surgery/Procedure: 12/10/17 Operative Procedure(s): left thumb and middle finger a1 pedro pablo release Pre Op Diagnosis: left thumb and middle finger stenosing tenosynovitis Post-Op Diagnosis: Same Anesthesia Technique: Local, MAC Primary Surgeon: Benjamin Lisa Anesthesia Provider: Monalisa Knapp Procurement Clerk: Ashley Hansen in mLs: 5 Complications: None Condition: Good
--- NOTE | 2017-12-15 07:48 | OR ---
DATE OF OPERATION: 12/10/2017 SURGEON: Bnejamin Lisa MD OPERATION PERFORMED: Left thumb and middle finger A1 pedro pablo release. PREOPERATIVE DIAGNOSIS: Left thumb and middle finger stenosing tenosynovitis. POSTOPERATIVE DIAGNOSIS: Left thumb and middle finger stenosing tenosynovitis. ANESTHESIA: Local MAC. ANESTHESIA PROVIDER: Maite Rico. BOILER RELINER: Ashley Hansen PA-C. ESTIMATED BLOOD LOSS: 5 mL. COMPLICATIONS: None. CONDITION: Stable. DESCRIPTION OF PROCEDURE: The patient was identified in the preoperative holding area. Proper site was marked and identified by the surgeon. The patient was taken back to the operative suite, where after adequate anesthesia, the patient's left upper extremity was sterilely prepped and draped in the usual sterile fashion. OR time-out was performed. The patient received 2 g of Ancef. At this time, 1% lidocaine without epinephrine and 0.25% Marcaine without epinephrine were used to anesthetize over the A1 pedro pablo regions. Esmarch was used as a tourniquet on the forearm. Transverse incision was then made over the thumb MCP crease. As a blunt dissection, it was taken down to the A1 pedro pablo. Ragnell retractors were placed medially and laterally to protect the neurovascular bundles. [place] blade was then used to incise the A1 pedro pablo longitudinally and then a tenotomy scissors was used to make sure it was released both proximally and distally. The tendon was brought through the wound bed and was found to have no significant adhesions. At this time, attention was turned to the middle finger, again a transverse incision was made. Blunt dissection was taken down to the A1 pedro pablo. Ragnell retractors were again placed and a [place] blade and a tenotomy scissors were used for resection of the A1 pedro pablo. At this time, again, the tendon showed no signs of adhesions. Adequate saline was irrigated through both wounds. 4-0 nylon simple suture was used for closure of the skin. The patient was placed in a sterile soft dressing and sent to PACU in stable condition. MMODAL /[id number]
== END | disposition home or self-care (01) ==
LOC: JD.SDS 06:15
PROVIDERS: ATTEND Orthopaedic Surgery
DX: M65.332 Trigger finger, left middle finger (principal); M65.312 Trigger thumb, left thumb; F17.210 Nicotine dependence, cigarettes, uncomplicated; M19.90 Unspecified osteoarthritis, unspecified site; E11.9 Type 2 diabetes mellitus without complications; I10 Essential (primary) hypertension
CPT/HCPCS: 26055; 87641; J0690; J2001; J2250; J3010; J3490; J7040; 01810; J2704

== ENCOUNTER 2022-10-09 10:37 | Emergency (ER) | payer OTHER ==
[2022-10-09 11:11] VITALS: BP 135/89; PULSE 96
[2022-10-09] MEDS ORDERED: Sodium Chloride 0.9% 1,000 ML IV ONE (11:18)
[2022-10-09] MEDS ORDERED: Ondansetron 4 MG/2 ML SDV IVPUSH ONE (11:18)
[2022-10-09] MEDS ORDERED: HYDROmorphone 0.5 MG/0.5 ML Syringe IVPUSH ONE (11:18)
== END 2022-10-09 14:51 | disposition home or self-care (01) ==
LOC: JD.ED 10:37
DX: K59.00 Constipation, unspecified (principal); I25.10 Atherosclerotic heart disease of native coronary artery without angina pectoris; E78.00 Pure hypercholesterolemia, unspecified; I10 Essential (primary) hypertension; I25.2 Old myocardial infarction; J44.9 Chronic obstructive pulmonary disease, unspecified; E11.40 Type 2 diabetes mellitus with diabetic neuropathy, unspecified; E66.9 Obesity, unspecified; Z79.82 Long term (current) use of aspirin; Z79.4 Long term (current) use of insulin; Z88.5 Allergy status to narcotic agent; Z79.899 Other long term (current) drug therapy; Z68.26 Body mass index [BMI] 26.0-26.9, adult
CPT/HCPCS: 36415; 74018; 80053; 81001; 82150; 83690; 85025; 86140; 96361; 96374; 96375; 99284; J1170; J2405; J7030

== ENCOUNTER 2023-04-08 10:47 | Emergency (ER) | payer OTHER ==
[2023-04-08] MEDS ORDERED: Acetaminophen/HYDROcodone 325-5 MG Tab PO ONE (11:17)
[2023-04-08] MEDS ORDERED: predniSONE 20 MG Tab PO ONE (11:17)
[2023-04-08 13:41] VITALS: BP 122/81; PULSE 81
== END 2023-04-08 13:27 | disposition home or self-care (01) ==
LOC: JD.ED 10:47
DX: M54.42 Lumbago with sciatica, left side (principal); E11.40 Type 2 diabetes mellitus with diabetic neuropathy, unspecified; E66.9 Obesity, unspecified; J44.9 Chronic obstructive pulmonary disease, unspecified; I25.10 Atherosclerotic heart disease of native coronary artery without angina pectoris; E78.00 Pure hypercholesterolemia, unspecified; I10 Essential (primary) hypertension; I25.2 Old myocardial infarction; K21.9 Gastro-esophageal reflux disease without esophagitis; Z79.4 Long term (current) use of insulin; Z79.82 Long term (current) use of aspirin; Z79.899 Other long term (current) drug therapy; Z79.84 Long term (current) use of oral hypoglycemic drugs
CPT/HCPCS: 72110; 72110-26; 99283; 99284

== ENCOUNTER 2024-03-20 08:54 | Emergency (ER) | payer OTHER, MEDICAID ==
[2024-03-20] MEDS: diphenhydrAMINE 50 MG/ML SDV IVPUSH ONE (09:37)
[2024-03-20] MEDS: Metoclopramide 10 MG/2 ML SDV IVPUSH ONE (09:39)
[2024-03-20] MEDS: Lidocaine 1% 10 ML MDV INJECT ONE (09:40)
[2024-03-20] MEDS: Triamcinolone Acetonide 40 MG/ML 1 ML SDV INJECT ONE (09:40)
[2024-03-20] MEDS: methylPREDNISolone Sodium Succinate 125 MG/2 ML SDV IVPUSH ONE (09:40)
[2024-03-20] MEDS: HYDROmorphone 0.5 MG/0.5 ML Syringe IVPUSH ONE (09:40)
[2024-03-20] MEDS: Sodium Chloride 0.9% 1,000 ML IV SCH (09:41)
[2024-03-20 09:43] LABS: BASOPHILS PERCENT AUTO 0.4 % (0.0-1.0); EOSINOPHILS ABSOLUTE AUTO 0.3 K/mm3 (0.0-0.4); HEMOGLOBIN 12.9 gm/dl (12.0-16.0); IMMATURE GRAN ABSOLUTE AUTO 0.03 K/mm3 (0.00-0.05); IMMATURE GRAN PERCENT AUTO 0.4 % (0.0-0.4); LYMPHOCYTES ABSOLUTE AUTO 1.5 K/mm3 (1.0-4.8); LYMPHOCYTES PERCENT AUTO 20.5 % (24.0-44.0); MEAN CORPUSCULAR HEMOGLOBIN 29.5 pg (28.0-32.0); MEAN CORPUSCULAR HGB CONC 33.1 g/dl (32.0-36.0); MEAN PLATELET VOLUME 11.5 fl (9.4-12.3); MONOCYTES ABSOLUTE AUTO 0.4 K/mm3 (0.0-0.8); MONOCYTES PERCENT AUTO 5.7 % (0.0-8.0); NEUTROPHILS ABSOLUTE AUTO 5.2 K/mm3 (1.8-7.7); PLATELET COUNT,PLT 135 K/mm3 (150-400); RED BLOOD CELL COUNT 4.38 M/mm3 (4.10-5.30); WHITE BLOOD CELL COUNT,WBC 7.53 K/mm3 (3.9-11.3)
[2024-03-20 10:03] LABS: A/G RATIO 1.1 (1-2); ALANINE AMINOTRANSFERASE,ALT 51 U/L (14-59); ALBUMIN 3.7 g/dl (3.4-5.0); ALKALINE PHOSPHATASE 89 U/L (46-116); ANION GAP 12.3 (5-15); ASPARTATE AMNIOTRANSFERASE,AST 38 U/L (15-37); BILIRUBIN TOTAL 0.4 mg/dL (0.2-1.0); BLOOD UREA NITROGEN,BUN 24 mg/dL (7-18); C-REACTIVE PROTEIN 0.17 mg/dL (<0.30); CARBON DIOXIDE,CO2 24 mEq/L (21-32); CHLORIDE,CL 107 mEq/L (98-107); CREATININE 2.4 mg/dL (0.55-1.02); ESTIMATED GFR 22 mL/min (>60); GLUCOSE RANDOM 177 mg/dL (70-99); POTASSIUM,K 4.3 mEq/L (3.5-5.1); PROTEIN TOTAL,TP 7.2 g/dl (6.4-8.2); SODIUM,NA 139 mEq/L (136-145); URIC ACID 7.3 mg/dL (2.6-6.0)
[2024-03-20] MEDS ORDERED: Colchicine 0.6 MG Tab PO ONE (10:41)
[2024-03-20 19:11] VITALS: BP 125/81; PULSE 65
== END 2024-03-20 11:13 | disposition home or self-care (01) ==
LOC: JD.ED 08:54
DX: M10.9 Gout, unspecified (principal); E11.65 Type 2 diabetes mellitus with hyperglycemia; J44.9 Chronic obstructive pulmonary disease, unspecified; K21.9 Gastro-esophageal reflux disease without esophagitis; I25.10 Atherosclerotic heart disease of native coronary artery without angina pectoris; I10 Essential (primary) hypertension; I25.2 Old myocardial infarction; Z95.5 Presence of coronary angioplasty implant and graft; Z79.82 Long term (current) use of aspirin; Z79.899 Other long term (current) drug therapy; Z79.4 Long term (current) use of insulin
CPT/HCPCS: 20610; 36415; 73562; 80053; 84550; 85025; 86140; 96361; 96374; 96375; 99284; J1170; J1200; J2765; J2919; J3301; J7030; J3490

== ENCOUNTER 2024-10-19 14:04 | Emergency (ER) | payer OTHER, MEDICAID ==
[2024-10-19] MEDS ORDERED: Naloxone 0.4 MG/ML SDV IVPUSH PRN ×2 (14:21→15:31)
[2024-10-19] MEDS: HYDROmorphone 0.5 MG/0.5 ML Syringe IVPUSH ONE ×2 (14:25→15:34)
[2024-10-19 14:38] LABS: BASOPHILS PERCENT AUTO 0.3 % (0.0-1.0); EOSINOPHILS ABSOLUTE AUTO 0.2 K/mm3 (0.0-0.4); EOSINOPHILS PERCENT AUTO 2.1 % (0.0-6.0); HEMATOCRIT 38.7 % (37.0-47.0); HEMOGLOBIN 12.8 gm/dl (12.0-16.0); IMMATURE GRAN ABSOLUTE AUTO 0.07 K/mm3 (0.00-0.05); IMMATURE GRAN PERCENT AUTO 0.7 % (0.0-0.4); LYMPHOCYTES ABSOLUTE AUTO 2.4 K/mm3 (1.0-4.8); LYMPHOCYTES PERCENT AUTO 25.5 % (24.0-44.0); MEAN CORPUSCULAR HEMOGLOBIN 29.8 pg (28.0-32.0); MEAN CORPUSCULAR HGB CONC 33.1 g/dl (32.0-36.0); MEAN CORPUSCULAR VOLUME 90.2 fl (83.0-99.0); MEAN PLATELET VOLUME 10.9 fl (9.4-12.3); MONOCYTES ABSOLUTE AUTO 0.6 K/mm3 (0.0-0.8); NEUTROPHILS ABSOLUTE AUTO 6.2 K/mm3 (1.8-7.7); NEUTROPHILS PERCENT AUTO 65.4 % (41.0-71.0); PLATELET COUNT,PLT 122 K/mm3 (150-400); RED BLOOD CELL COUNT 4.29 M/mm3 (4.10-5.30); WHITE BLOOD CELL COUNT,WBC 9.46 K/mm3 (3.9-11.3)
[2024-10-19 15:12] LABS: ALBUMIN 3.1 g/dl (3.4-5.0); ANION GAP 16.1 (5-15); BILIRUBIN TOTAL 0.3 mg/dL (0.2-1.0); BUN/CREATININE RATIO 15.5 (14-18); CALCIUM 8.9 mg/dL (8.5-10.1); CREATININE 2.2 mg/dL (0.55-1.02); EST CRCL DRUG DOSING (CG) 21.37 mL/min; PHOSPHORUS 4.2 mg/dL (2.6-4.7); POTASSIUM,K 4.1 mEq/L (3.5-5.1); PROTEIN TOTAL,TP 6.2 g/dl (6.4-8.2)
[2024-10-19 16:40] VITALS: BP 118/79; PULSE 84
== END 2024-10-19 16:30 | disposition home or self-care (01) ==
LOC: JD.ED 14:04
DX: M79.661 Pain in right lower leg (principal); M79.662 Pain in left lower leg; E78.00 Pure hypercholesterolemia, unspecified; I10 Essential (primary) hypertension; J45.909 Unspecified asthma, uncomplicated; E11.9 Type 2 diabetes mellitus without complications; E66.9 Obesity, unspecified; F17.210 Nicotine dependence, cigarettes, uncomplicated; I25.10 Atherosclerotic heart disease of native coronary artery without angina pectoris; Z79.82 Long term (current) use of aspirin; Z79.4 Long term (current) use of insulin; Z79.899 Other long term (current) drug therapy; Z90.49 Acquired absence of other specified parts of digestive tract; Z68.27 Body mass index [BMI] 27.0-27.9, adult
CPT/HCPCS: 36415; 80053; 83735; 84100; 85025; 93010; 96374; 96376; 99283; 99283-25

== ENCOUNTER 2025-02-13 14:40 | Emergency (ER) | payer MEDICAID ==
[2025-02-13 16:18] LABS: BASOPHILS ABSOLUTE AUTO 0.0 K/mm3 (0.0-0.2); BASOPHILS PERCENT AUTO 0.2 % (0.0-1.0); EOSINOPHILS ABSOLUTE AUTO 0.1 K/mm3 (0.0-0.4); EOSINOPHILS PERCENT AUTO 1.1 % (0.0-6.0); IMMATURE GRAN ABSOLUTE AUTO 0.03 K/mm3 (0.00-0.05); IMMATURE GRAN PERCENT AUTO 0.4 % (0.0-0.4); LYMPHOCYTES ABSOLUTE AUTO 2.2 K/mm3 (1.0-4.8); LYMPHOCYTES PERCENT AUTO 26.1 % (24.0-44.0); MEAN PLATELET VOLUME 10.8 fl (9.4-12.3); MONOCYTES ABSOLUTE AUTO 0.5 K/mm3 (0.0-0.8); MONOCYTES PERCENT AUTO 5.5 % (0.0-8.0); NEUTROPHILS ABSOLUTE AUTO 5.5 K/mm3 (1.8-7.7); NEUTROPHILS PERCENT AUTO 66.7 % (41.0-71.0); NRBC ABSOLUTE 0.00 (0.00-0.02); NRBC PERCENT 0.0 % (0.0-0.2); PLATELET COUNT,PLT 161 K/mm3 (150-400); RED BLOOD CELL COUNT 4.72 M/mm3 (4.10-5.30); WHITE BLOOD CELL COUNT,WBC 8.24 K/mm3 (3.9-11.3)
[2025-02-13] MEDS: Sodium Chloride 0.9% 10 ML Syringe FLUSH PRN (16:21)
[2025-02-13] MEDS: fentaNYL 100 MCG/2 ML SDV IVPUSH ONE (16:21)
[2025-02-13 16:23] LABS: APPEARANCE,URINE CLEAR (Clear); GLUCOSE,URINE 2+ (Negative); OCCULT BLOOD,URINE NEGATIVE (Negative)
[2025-02-13] MEDS: Ondansetron 4 MG/2 ML SDV IVPUSH ONE (16:23)
[2025-02-13 16:29] LABS: BUPRENORPHINE SCREEN,URINE NEGATIVE (CUTOFF=10); METHADONE SCREEN, URINE NEGATIVE (CUTOFF=200); METHAMPHETAMINES SCREEN, URINE NEGATIVE (CUTOFF=500); OXYCODONE SCREEN,URINE NEGATIVE (CUT0FF=100); THC SCREEN,URINE 20 NG/ML PRESUMPTIVE POSITIVE (CUTOFF=50)
[2025-02-13 16:32] LABS: SQUAMOUS EPITHELIAL CELLS,UR 0-5 /hpf (0-5)
[2025-02-13 16:33] LABS: AMPHETAMINES SCREEN, URINE NEGATIVE (CUTOFF=500)
[2025-02-13 16:48] LABS: A/G RATIO 1.1 (1-2); ALANINE AMINOTRANSFERASE,ALT 50.0 U/L (14-59); ASPARTATE AMNIOTRANSFERASE,AST 39.0 U/L (15-37); BILIRUBIN TOTAL 0.6 mg/dL (0.2-1.0); BLOOD UREA NITROGEN,BUN 20.0 mg/dL (7-18); CARBON DIOXIDE,CO2 28.0 mEq/L (21-32); CHLORIDE,CL 98.0 mEq/L (98-107); CREATININE 2.4 mg/dL (0.55-1.02); EST CRCL DRUG DOSING (CG) 18.73 mL/min; ESTIMATED GFR 22.0 mL/min (>60); GLUCOSE RANDOM 109.0 mg/dL (70-99); POTASSIUM,K 4.0 mEq/L (3.5-5.1); PROTEIN TOTAL,TP 7.2 g/dl (6.4-8.2); SODIUM,NA 137.0 mEq/L (136-145); TSH 2.188 uIU/mL (0.358-3.74)
[2025-02-13 16:52] LABS: ETHANOL BLOOD MEDICAL 0.0 gm% (0.00)
[2025-02-13 19:37] VITALS: BP 163/98; PULSE 77
== END 2025-02-13 19:25 | disposition home or self-care (01) ==
LOC: JD.ED 14:40
DX: R11.2 Nausea with vomiting, unspecified (principal); R10.9 Unspecified abdominal pain; I25.10 Atherosclerotic heart disease of native coronary artery without angina pectoris; E78.00 Pure hypercholesterolemia, unspecified; I10 Essential (primary) hypertension; I25.2 Old myocardial infarction; Z95.5 Presence of coronary angioplasty implant and graft; J44.89 Other specified chronic obstructive pulmonary disease; E11.9 Type 2 diabetes mellitus without complications; Z79.82 Long term (current) use of aspirin; Z79.4 Long term (current) use of insulin; Z79.899 Other long term (current) drug therapy
CPT/HCPCS: 36415; 74176; 80053; 80306; 80307; 81001; 83690; 83735; 84443; 85025; 93005; 96361; 96374; 96375; 99284; J2405; J3010; J7030; 93010